=== PATIENT | female | born 1995 | race Caucasian/White ===

== ENCOUNTER 2017-10-31 21:44 | Emergency (ER) | payer BC ==
[2017-11-01] MEDS: ACETAMINOPHEN 325 MG TAB PO (01:21)
[2017-11-01] MEDS: IBUPROFEN 800 MG TAB PO (01:21)
[2017-11-01] MEDS: OSELTAMIVIR 75 MG CAP PO (01:21)
== END 2017-11-01 03:38 | disposition home or self-care (01) ==
LOC: FTE 21:44
DX: R05 Cough (principal); R50.9 Fever, unspecified; R09.89 Other specified symptoms and signs involving the circulatory and respiratory systems; R52 Pain, unspecified; R11.10 Vomiting, unspecified
CPT/HCPCS: 99284; Z7502